=== PATIENT | male | born 1960 | race Hispanic/Latino ===

== ENCOUNTER 2018-01-29 15:49 | Inpatient (IN) | payer OTHER ==
[2018-01-29 15:58] VITALS: BMI 37.5
--- NOTE | 2018-01-29 16:40 | C.PDOC ---
History Of Present Illness 57 y/o male, who has been drinking for years, presents to ED stating that he has been feeling depressed. States he hates himself and has been thinking about committing suicide either by cutting a major artery or hanging himself. States he attempted to commit suicide 20 years ago and was put on Prozac but not on anything at this time. 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 He called his ex- who suggested to come here to ER. Time Seen by Provider: 01/29/18 16:16 Chief Complaint (Nursing): Psychiatric Evaluation History Per: Patient History/Exam Limitations: no limitations Onset/Duration Of Symptoms: Days Current Symptoms Are (Timing): Still Present Past Medical History Reviewed: Historical Data, Nursing Documentation, Vital Signs Vital Signs: Last Vital Signs Temp 98.9 F 01/29/18 15:59 Pulse 94 H 01/29/18 15:59 Resp 19 01/29/18 15:59 BP 195/111 H 01/29/18 15:59 Pulse Ox 95 01/29/18 15:59 - Medical History PMH: Fractures (LEFT LEG FX W/HARDWARE), HTN Family History: States: No Known Family Hx - Social History Hx Alcohol Use: Yes Hx Substance Use: No - Immunization History Hx Tetanus Toxoid Vaccination: No Hx Influenza Vaccination: No Hx Pneumococcal Vaccination: No Review Of Systems Psych: Positive for: Depression, Suicidal ideation Physical Exam - Physical Exam Appears: Non-toxic, No Acute Distress, Other (Sad, flat affect) Skin: Warm, Dry Head: Atraumatic, Normacephalic Eye(s): bilateral: Normal Inspection Oral Mucosa: Moist Neck: Supple Chest: Symmetrical Cardiovascular: Rhythm Regular, No Murmur Respiratory: Normal Breath Sounds, No Rales, No Rhonchi, No Wheezing Gastrointestinal/Abdominal: Soft, No Tenderness Extremity: Bilateral: Atraumatic, Normal Color And Temperature, Normal ROM Neurological/Psych: Oriented x3, Normal Speech ED Course And Treatment - Laboratory Results Result Diagrams: 01/29/18 16:39 01/29/18 16:39 Lab Interpretation: No Acute Changes O2 Sat by Pulse Oximetry: 95 (RA) Pulse Ox Interpretation: Normal Progress Note: Patient is medically cleared for detox admission Medical Decision Making Medical Decision Making: Plan: --Labs --Urinalysis Disposition - Disposition Disposition: HOSPITALIZED Disposition Time: 18:20 Condition: STABLE - POA Present On Arrival: None - Clinical Impression Clinical Impression: Alcohol dependence - Scribe Statement The provider has reviewed the documentation as recorded by the Margaret Callahan Provider Attestation: All medical record entries made by the Margaret were at my direction and personally dictated by me. I have reviewed the chart and agree that the record accurately reflects my personal performance of the history, physical exam, medical decision making, and the department course for this patient. I have also personally directed, reviewed, and agree with the discharge instructions and disposition.
[2018-01-29 16:44] LABS: BASO # 0.1 K/uL (0.0-0.2); BASO % 1.2 % (0.0-2.0); EOS # 0.2 K/uL (0.0-0.7); EOS % 1.9 % (0.0-4.0); HEMOGLOBIN 15.1 g/dL (12.0-18.0); LYMPH # 2.5 K/uL (1.0-4.3); LYMPH % 28.3 % (20.0-40.0); MEAN CORPUSCULAR HEMOGLOBIN 30.8 pg (27.0-31.0); MEAN CORPUSCULAR HGB CONC 33.5 g/dL (33.0-37.0); MEAN PLATELET VOLUME 7.7 fL (7.2-11.7); MONO # 0.7 K/uL (0.0-0.8); MONO % 7.6 % (0.0-10.0); NEUT # 5.4 K/uL (1.8-7.0); RBC 4.88 Mil/uL (4.40-5.90); RED CELL DISTRIBUTION WIDTH 14.1 % (11.5-14.5); WHITE BLOOD COUNT 8.9 K/uL (4.8-10.8)
[2018-01-29 16:49] LABS: SQUAMOUS EPITHIAL 1 /hpf (0-5); URINE BILIRUBIN NEGATIVE (NEGATIVE); URINE BLOOD NEGATIVE (NEGATIVE); URINE CLARITY Clear (Clear); URINE COLOR Yellow (YELLOW); URINE GLUCOSE (UA) NORMAL (Normal); URINE LEUKOCYTE ESTERASE NEG Leu/uL (Negative); URINE PROTEIN NEGATIVE (NEGATIVE)
[2018-01-29 16:56] LABS: ALB/GLOB RATIO 1.5 (1.0-2.1); ALBUMIN 4.2 g/dL (3.5-5.0); ALT/SGPT 47 U/L (21-72); AST/SGOT 37 U/L (17-59); BLOOD UREA NITROGEN 15 mg/dL (9-20); GFR NON-AFRICAN AMERICAN > 60
[2018-01-29 16:58] LABS: BARBITURATES, UR NEGATIVE (NEGATIVE); BENZODIAZEPINES, UR NEGATIVE (NEGATIVE); OPIATES, UR NEGATIVE (NEGATIVE); PHENCYCLIDINE, UR NEGATIVE (NEGATIVE)
--- NOTE | 2018-01-29 18:43 | PCM.BM ---
<Fortino Dejesus - Last Filed: 01/29/18 18:41> Treatment Plan Problems - Problems identified on initial assessmt potential for alcohol withdrawal Date Initiated: 01/29/18 Time Initiated: 18:42 Status: Active Treatment assets and liabiliti Patient Assests: ADL independent, cognitively intact Patient Liabilities: substance abuse - Milieu Protocol Maintain good personal hygiene: daily Encourage regular showers, daily Remind patient to perform daily oral care, daily Assist patient to perform ADL's Conduct patient checks and document Observation sheet: Q15 minutes Maintain personal safety: every shift Educate patient to report safety concerns to staff, every shift Monitor environment for contraband/sharps Medication safety: Monitor for expected outcome, potential side effects: every shift, Assess barriers to learning: every shift, Assess readiness for medication education: every shift <Kathleen Hussein - Last Filed: 01/31/18 12:24> Family Contact Family involvement: Famliy/SO not involved - Goals for Treatment Patient goals for treatment: Complete detox and transition to an inpatient rehab. Discharge/Continuing Care - Education Needs Education Needs: Patient Medication, Patient Diagnosis/Disease Process, Patient Coping Skills, Patient Anger Management skills, Patient Placement options, Patient Community resources - Discharge Discharge Criteria: Ability to care for self, No longer exhibiting s/s of withdrawal, Reduction of target symptoms Discharge to:: Substance Abuse Rehab - Treatment Team Participation Patient/Family/SO Statement: 01/31/18 12:24 "I wanna go to short-term rehab but not too far away--I wanna stey near my 3 sons..." Discussed with Family/SO: No Was Patient/Family/SO present at Treatment Team Meeting: Yes <Alicia Evans - Last Filed: 02/02/18 14:05> - Diagnosis (1) Alcohol dependence Status: Acute Interventions: 01/31/18 14:05 * Assess 7x/week regarding severity of withdrawal * Educate regarding risks, benefits, side effects and alternatives of medications * Use Motivational Interviewing for abstinence * Use CBT for relapse prevention * Medication management for withdrawal symptoms * Encourage medication assisted treatment *
[2018-01-29] MEDS ORDERED: Aluminum Hydroxide/Magnesium Hydroxide Susp (30 mL) PO PRN (22:43)
[2018-01-30] MEDS: Multiple Vitamins Tab PO SCH (09:00)
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
--- NOTE | 2018-01-30 16:46 | RAD ---
Date of service: 01/30/2018 HISTORY: SOB COMPARISON: No prior. FINDINGS: LUNGS: Prominent lung markings. Mildly enlarged left hilum. PLEURA: No significant pleural effusion identified, no pneumothorax apparent. CARDIOVASCULAR: No aortic atherosclerotic calcification present. Normal cardiac size. No pulmonary vascular congestion. OSSEOUS STRUCTURES: No significant abnormalities. VISUALIZED UPPER ABDOMEN: Normal. OTHER FINDINGS: None. IMPRESSION: Prominent lung markings and mild enlargement of the left hilum.
[2018-01-31 07:20] LABS: BASO % 0.6 % (0.0-2.0); EOS # 0.2 K/uL (0.0-0.7); EOS % 2.9 % (0.0-4.0); HEMOGLOBIN 15.1 g/dL (12.0-18.0); LYMPH # 1.9 K/uL (1.0-4.3); LYMPH % 27.3 % (20.0-40.0); MEAN CORPUSCULAR HEMOGLOBIN 31.9 pg (27.0-31.0); MEAN CORPUSCULAR HGB CONC 34.7 g/dL (33.0-37.0); MEAN PLATELET VOLUME 7.7 fL (7.2-11.7); MONO # 0.5 K/uL (0.0-0.8); MONO % 7.1 % (0.0-10.0); NEUT # 4.4 K/uL (1.8-7.0); NEUT % 62.1 % (50.0-75.0); RBC 4.74 Mil/uL (4.40-5.90); RED CELL DISTRIBUTION WIDTH 14.3 % (11.5-14.5); WHITE BLOOD COUNT 7.1 K/uL (4.8-10.8)
[2018-01-31 08:18] LABS: ALB/GLOB RATIO 1.3 (1.0-2.1); ALT/SGPT 43 U/L (21-72); AST/SGOT 45 U/L (17-59); BLOOD UREA NITROGEN 14 mg/dL (9-20); CALCIUM 8.5 mg/dl (8.6-10.4); GFR NON-AFRICAN AMERICAN > 60
[2018-01-31] MEDS: Multiple Vitamins Tab PO SCH (10:45)
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
--- NOTE | 2018-01-31 16:23 | CARD ---
APPROVED REPORT Date of service: 01/31/2018 EXAM: Two-dimensional and M-mode echocardiogram with Doppler and color Doppler. Other Information Quality : TDSRhythm : INDICATION Peripheral Edema 2D DIMENSIONS IVSd1.3 (0.7-1.1cm)LVDd4.4 (3.9-5.9cm) PWd1.3 (0.7-1.1cm)LA Ahjehm34 (18-58mL) LVDs2.8 (2.5-4.0cm)FS (%) 35.2 % LVEF (%)64.8 (>50%)LVEF (Ibrahim's)56.67 % M-Mode DIMENSIONS Left Atrium (MM)4.06 (2.5-4.0cm)IVSd0.95 (0.7-1.1cm) Aortic Root4.00 (2.2-3.7cm)LVDd5.21 (4.0-5.6cm) Aortic Cusp Exc.3.00 (1.5-2.0cm)PWd1.07 (0.7-1.1cm) FS (%) 45 %LVDs2.87 (2.0-3.8cm) LVEF (%)76 (>50%) Mitral Valve MV E Ukqjmcma53.6cm/sMV A Lkbltkiv13.9cm/sE/A ratio0.8 TDI Lateral E' Peak V7.58cm/sMedial E' Peak V6.48cm/sE/Lateral E'6.9 E/Medial E'8.1 Tricuspid Valve TR Peak Hmphosgs004fu/sTR Peak Gr.[id number] LEFT VENTRICLE The left ventricle is normal size. There is normal left ventricular wall thickness. The left ventricular function is normal. The left ventricular ejection fraction is within the normal range. There is normal LV segmental wall motion. The left ventricular diastolic function is normal. RIGHT VENTRICLE The right ventricle is normal size. The right ventricular systolic function is normal. ATRIA The left atrium is mildly dilated. The right atrium size is normal. AORTIC VALVE The aortic valve is normal in structure. No aortic regurgitation is present. There is no aortic valvular stenosis. MITRAL VALVE The mitral valve is normal in structure. There is no mitral valve regurgitation noted. TRICUSPID VALVE The tricuspid valve is normal in structure. There is trace to mild tricuspid regurgitation. Right ventricular systolic pressure is estimated at less than 30 mmHg. PULMONIC VALVE The pulmonary valve is normal in structure. There is trace pulmonic valvular regurgitation. GREAT VESSELS The aortic root is normal in size. The IVC is normal in size and collapses >50% with inspiration. PERICARDIAL EFFUSION There is no pericardial effusion. <Conclusion> Normal bi-ventricular function. The left atrium is mildly dilated. No significant valvular abnormality. No pericardial effusion.
[2018-01-31 16:39] LABS: B-TYPE NATRIURETIC PEPTIDE 116 pg/mL (0-900)
--- NOTE | 2018-01-31 17:16 | CARD ---
APPROVED REPORT Date of service: 01/30/2018 EKG Measurement Heart [id number] <Conclusion> Normal sinus rhythm Minimal voltage criteria for LVH, may be normal variant Anterolateral infarct, age undetermined Abnormal ECG
--- NOTE | 2018-01-31 19:45 | CP.PCM.PN ---
Subjective - Date & Time of Evaluation Date of Evaluation: 01/31/18 Time of Evaluation: 08:30 - Subjective Subjective: PGY-[address] Freitas service Patient is seen and examined by bedside. Patient states bilateral extremity edema has improved from yesterday, noticing his legs to be less swollen. Patient continues to complains of tingling and numbness on plantar aspect of feet, radiating to toes. Patient admits to multi-joint pain and back pain of chronic nature. Denies fevers chills, chest pain, shortness of breath, abdominal pain, n/v/d/c or urinary symptoms. Objective - Vital Signs/Intake and Output Vital Signs (last 24 hours): Temp Pulse Resp BP Pulse Ox 98.6 F 77 18 162/93 H 96 01/31/18 16:22 01/31/18 16:22 01/31/18 16:22 01/31/18 16:22 01/31/18 16:22 - Medications Medications: Current Medications Al Hydrox/Mg Hydrox/Simethicone (Maalox 30 Ml) 30 ml PO TID PRN PRN Reason: Indigestion / Heartburn Chlordiazepoxide (Librium) 25 mg PO Q4H PRN PRN Reason: Alcohol Withdrawal Last Admin: 01/30/18 08:56 Dose: 25 mg Chlordiazepoxide (Librium) 25 mg PO Q6 [facility]; Taper Stop: 02/04/18 05:59 Last Admin: 01/31/18 17:00 Dose: 25 mg Chlorthalidone (Hygroton) 25 mg PO Q24H FATOUMATA Last Admin: 01/31/18 12:27 Dose: 25 mg Clonidine HCl (Catapres) 0.1 mg PO Q4H PRN PRN Reason: Symptoms of alcohol withdrawl Last Admin: 01/31/18 17:00 Dose: 0.1 mg Dicyclomine HCl (Bentyl) 10 mg PO Q6 PRN PRN Reason: Muscle spasm Folic Acid (Folic Acid) 1 mg PO DAILY [facility] Last Admin: 01/31/18 10:44 Dose: 1 mg Gabapentin (Neurontin) 300 mg PO TID FATOUMATA Last Admin: 01/31/18 17:01 Dose: 300 mg Hydroxyzine HCl (Atarax) 50 mg PO Q6H PRN PRN Reason: Anxiety Ibuprofen (Motrin Tab) 600 mg PO Q6 PRN PRN Reason: Pain, moderate (4-7) Last Admin: 01/30/18 08:56 Dose: 600 mg Lisinopril (Zestril) 20 mg PO DAILY [facility] Loperamide HCl (Imodium) 2 mg PO Q8 PRN PRN Reason: Diarrhea Multivitamins (Hexavitamin) 1 tab PO DAILY [facility] Last Admin: 01/31/18 10:45 Dose: 1 tab Naltrexone HCl (Revia) 50 mg PO DAILY [facility] Last Admin: 01/31/18 10:45 Dose: 50 mg Nicotine (Nicoderm Cq) 1 patch TD DAILY [facility] Last Admin: 01/31/18 10:44 Dose: 1 patch Ondansetron HCl (Zofran Tab) 4 mg PO Q8 PRN PRN Reason: Nausea/Vomiting Sertraline HCl (Zoloft) 50 mg PO DAILY [facility] Last Admin: 01/31/18 10:48 Dose: 50 mg Thiamine HCl (Vitamin B1 Tab) 100 mg PO DAILY [facility] Last Admin: 01/31/18 10:45 Dose: 100 mg Trazodone HCl (Desyrel) 100 mg PO HS PRN PRN Reason: Sleep Last Admin: 01/29/18 20:32 Dose: 100 mg - Labs Labs: 01/31/18 07:10 01/31/18 07:10 - Constitutional Appears: Well, Non-toxic, No Acute Distress - Head Exam Head Exam: ATRAUMATIC, NORMAL INSPECTION, NORMOCEPHALIC - Eye Exam Eye Exam: EOMI, Normal appearance, PERRL - ENT Exam ENT Exam: Mucous Membranes Moist, Normal Exam - Neck Exam Neck Exam: Full ROM, Normal Inspection - Respiratory Exam Respiratory Exam: Clear to Ausculation Bilateral, NORMAL BREATHING PATTERN. absent: Rales, Rhonchi, Wheezes - Cardiovascular Exam Cardiovascular Exam: REGULAR RHYTHM, +S1, +S2. absent: Tachycardia - GI/Abdominal Exam GI & Abdominal Exam: Soft, Normal Bowel Sounds. absent: Tenderness - Extremities Exam Extremities Exam: Full ROM, Normal Inspection Additional comments: no pitting pedal or lower extremity edema noted bilaterally - Back Exam Back Exam: Full ROM, NORMAL INSPECTION. absent: paraspinal tenderness, rash noted, tenderness, vertebral tenderness - Neurological Exam Neurological Exam: Alert, Awake, CN II-XII Intact, Oriented x3. absent: Motor Sensory Deficit - Psychiatric Exam Psychiatric exam: Normal Affect, Normal Mood - Skin Skin Exam: Dry, Normal Color, Warm Assessment and Plan - Assessment and Plan (Free Text) Assessment: 57 year old male w/ history of alcohol abuse and HTN, evaluated for SOB and b/l LE edema Plan: SOB, r/o CHF -EKG - NSR -chest X-ray - prominent lung markings, mild enlargement left hilum -Labs - WNL - continues to be afebrile - Echo today - f/u official report LE edema, r/o CHF - d/c Lasix - added Chlorthiadone 25mg PO QD HTN - This am 162/105 - changed lisinoproil from 10 to 20 mg PO QD - continue monitoring vitals Body aches -continue pain medication prn, ibuprofen Alcohol use disorder/Major depressive disorder/general anxiety - treatment as per Psych Plan discussed with Dr Fortino Vera, PGY-1
--- NOTE | 2018-02-01 00:20 | PCM.PYCHPN ---
Psychiatric Progress Note - Psychiatric Progress Note Patient seen today, length of contact: 15 min Patient Chief Complaint: "I don't feel well" Problems Identified/Issues Discussed: The pt is seen, chart reviewed, case discussed with staff. The pt is compliant with medications and reports no side-effects. Symptoms are improving but needs more time to stabilize. Pt attends groups and activities. Support given, psycho-education provided. After care discussed. Medication Change: Yes (detox changes daily) Medical Record Reviewed: Yes Mental Status Examination - Cognitive Function Orientation: Person, Place, Situation, Time Memory: Intact Attention: WNL Concentration: Poor Association: WNL Fund of Knowledge: WNL - Mood Mood: Depressed, Anxious - Affect Affect: Constricted - Speech Speech: Appropriate - Formal Thought Process Formal Thought Process: No Impairment - Suicidal Ideation Suicidal Ideation: No - Homicidal Ideation Homicidal Ideation: No Goal/Treatment Plan - Goal/Treatment Plan Need for Continued Stay: Discharge may exacerbated symptoms, Severe functional impairment Progress Toward Problem(s) and Goals/Treatment Plan: Continue medications Support and psychoeducation daily Attend groups and activities daily After care planning by counselors.
--- NOTE | 2018-02-01 07:56 | CP.PCM.PN ---
Subjective - Date & Time of Evaluation Date of Evaluation: 02/01/18 Time of Evaluation: 07:56 Objective - Vital Signs/Intake and Output Vital Signs (last 24 hours): Temp Pulse Resp BP Pulse Ox 97.5 F L 72 18 165/100 H 95 02/01/18 06:15 02/01/18 06:15 02/01/18 06:15 02/01/18 06:15 02/01/18 06:15 - Medications Medications: Current Medications Al Hydrox/Mg Hydrox/Simethicone (Maalox 30 Ml) 30 ml PO TID PRN PRN Reason: Indigestion / Heartburn Chlordiazepoxide (Librium) 25 mg PO Q4H PRN PRN Reason: Alcohol Withdrawal Last Admin: 02/01/18 06:12 Dose: 25 mg Chlordiazepoxide (Librium) 25 mg PO TID [facility]; Taper Stop: 02/04/18 05:59 Last Admin: 02/01/18 00:50 Dose: Not Given Chlorthalidone (Hygroton) 25 mg PO Q24H [facility] Last Admin: 01/31/18 12:27 Dose: 25 mg Clonidine HCl (Catapres) 0.1 mg PO Q4H PRN PRN Reason: Symptoms of alcohol withdrawl Last Admin: 02/01/18 06:12 Dose: 0.1 mg Dicyclomine HCl (Bentyl) 10 mg PO Q6 PRN PRN Reason: Muscle spasm Folic Acid (Folic Acid) 1 mg PO DAILY [facility] Last Admin: 01/31/18 10:44 Dose: 1 mg Gabapentin (Neurontin) 300 mg PO TID [facility] Last Admin: 01/31/18 17:01 Dose: 300 mg Hydroxyzine HCl (Atarax) 50 mg PO Q6H PRN PRN Reason: Anxiety Ibuprofen (Motrin Tab) 600 mg PO Q6 PRN PRN Reason: Pain, moderate (4-7) Last Admin: 01/30/18 08:56 Dose: 600 mg Lisinopril (Zestril) 20 mg PO DAILY [facility] Loperamide HCl (Imodium) 2 mg PO Q8 PRN PRN Reason: Diarrhea Multivitamins (Hexavitamin) 1 tab PO DAILY [facility] Last Admin: 01/31/18 10:45 Dose: 1 tab Naltrexone HCl (Revia) 50 mg PO DAILY [facility] Last Admin: 01/31/18 10:45 Dose: 50 mg Nicotine (Nicoderm Cq) 1 patch TD DAILY FATOUMATA Last Admin: 01/31/18 10:44 Dose: 1 patch Ondansetron HCl (Zofran Tab) 4 mg PO Q8 PRN PRN Reason: Nausea/Vomiting Sertraline HCl (Zoloft) 50 mg PO DAILY FATOUMATA Last Admin: 01/31/18 10:48 Dose: 50 mg Thiamine HCl (Vitamin B1 Tab) 100 mg PO DAILY FATOUMATA Last Admin: 01/31/18 10:45 Dose: 100 mg Trazodone HCl (Desyrel) 100 mg PO HS PRN PRN Reason: Sleep Last Admin: 01/31/18 21:24 Dose: 100 mg - Labs Labs: 01/31/18 07:10 01/31/18 07:10
[2018-02-01] MEDS: Multiple Vitamins Tab PO SCH (10:15)
--- NOTE | 2018-02-01 15:43 | CP.PCM.DIS ---
Provider - Provider Date of Admission: 01/29/18 18:21 Attending physician: Jared Grover Consults: 01/30/18 12:22 Hospitalist Consult Routine Comment: Consulting Provider: Antonio Lubin Consulting Physician: Antonio Lubin Reason for Consult: swelling upper/lower extremities, blurred vissions, joint pains Hospital Course - Lab Results Lab Results: Most Recent Lab Values WBC 7.1 K/uL (4.8-10.8) 01/31/18 07:10 RBC 4.74 Mil/uL (4.40-5.90) 01/31/18 07:10 Hgb 15.1 g/dL (12.0-18.0) 01/31/18 07:10 Hct 43.6 % (35.0-51.0) 01/31/18 07:10 MCV 92.0 fL (80.0-94.0) 01/31/18 07:10 MCH 31.9 pg (27.0-31.0) H 01/31/18 07:10 MCHC 34.7 g/dL (33.0-37.0) 01/31/18 07:10 RDW 14.3 % (11.5-14.5) 01/31/18 07:10 Plt Count 187 K/uL (130-400) 01/31/18 07:10 MPV 7.7 fL (7.2-11.7) 01/31/18 07:10 Neut % (Auto) 62.1 % (50.0-75.0) 01/31/18 07:10 Lymph % (Auto) 27.3 % (20.0-40.0) 01/31/18 07:10 [place] % (Auto) 7.1 % (0.0-10.0) 01/31/18 07:10 Eos % (Auto) 2.9 % (0.0-4.0) 01/31/18 07:10 Baso % (Auto) 0.6 % (0.0-2.0) 01/31/18 07:10 Neut # (Auto) 4.4 K/uL (1.8-7.0) 01/31/18 07:10 Lymph # (Auto) 1.9 K/uL (1.0-4.3) 01/31/18 07:10 [place] # (Auto) 0.5 K/uL (0.0-0.8) 01/31/18 07:10 Eos # (Auto) 0.2 K/uL (0.0-0.7) 01/31/18 07:10 Baso # (Auto) 0.0 K/uL (0.0-0.2) 01/31/18 07:10 Sodium 136 mmol/L (132-148) 01/31/18 07:10 Potassium 4.2 mmol/L (3.6-5.2) 01/31/18 07:10 Chloride 99 mmol/L (98-107) 01/31/18 07:10 Carbon Dioxide 24 mmol/L (22-30) 01/31/18 07:10 Anion Gap 16 (10-20) 01/31/18 07:10 BUN 14 mg/dL (9-20) 01/31/18 07:10 Creatinine 0.8 mg/dL (0.8-1.5) 01/31/18 07:10 Est GFR ( Amer) > 60 01/31/18 07:10 Est GFR (Non-Af Amer) > 60 01/31/18 07:10 Random Glucose 113 mg/dL (75-110) H 01/31/18 07:10 Hemoglobin A1c 5.9 % (4.2-6.5) 01/31/18 16:15 Calcium 8.5 mg/dl (8.6-10.4) L 01/31/18 07:10 Phosphorus 3.8 mg/dL (2.5-4.5) 01/31/18 07:10 Magnesium 1.9 mg/dL (1.6-2.3) 01/31/18 07:10 Total Bilirubin 0.7 mg/dL (0.2-1.3) 01/31/18 07:10 AST 45 U/L (17-59) 01/31/18 07:10 ALT 43 U/L (21-72) 01/31/18 07:10 Alkaline Phosphatase 82 U/L (38-126) 01/31/18 07:10 NT-Pro-B Natriuret Pep 116 pg/mL (0-900) 01/31/18 16:15 Total Protein 7.0 g/dL (6.3-8.3) 01/31/18 07:10 Albumin 4.0 g/dL (3.5-5.0) 01/31/18 07:10 Globulin 3.1 gm/dL (2.2-3.9) 01/31/18 07:10 Albumin/Globulin Ratio 1.3 (1.0-2.1) 01/31/18 07:10 Vitamin B12 249 pg/mL (239-931) 01/31/18 16:15 Urine Color Yellow (YELLOW) 01/29/18 16:39 Urine Clarity Clear (Clear) 01/29/18 16:39 Urine pH 5.0 (5.0-8.0) 01/29/18 16:39 Ur Specific [place] 1.019 (1.003-1.030) 01/29/18 16:39 Urine Protein Negative mg/dL (NEGATIVE) 01/29/18 16:39 Urine Glucose (UA) Normal mg/dL (Normal) 01/29/18 16:39 Urine Ketones Negative mg/dL (NEGATIVE) 01/29/18 16:39 Urine Blood Negative (NEGATIVE) 01/29/18 16:39 Urine Nitrate Negative (NEGATIVE) 01/29/18 16:39 Urine Bilirubin Negative (NEGATIVE) 01/29/18 16:39 Urine Urobilinogen 2.0 mg/dL (0.2-1.0) 01/29/18 16:39 Ur Leukocyte Esterase Neg Bill/uL (Negative) 01/29/18 16:39 Urine WBC (Auto) < 1 /hpf (0-5) 01/29/18 16:39 Urine RBC (Auto) < 1 /hpf (0-3) 01/29/18 16:39 Ur Squamous Epith Cells 1 /hpf (0-5) 01/29/18 16:39 Urine Opiates Screen Negative (NEGATIVE) 01/29/18 16:39 Urine Methadone Screen Negative (NEGATIVE) 01/29/18 16:39 Ur Barbiturates Screen Negative (NEGATIVE) 01/29/18 16:39 Ur Phencyclidine Scrn Negative (NEGATIVE) 01/29/18 16:39 Ur Amphetamines Screen Negative (NEGATIVE) 01/29/18 16:39 U Benzodiazepines Scrn Negative (NEGATIVE) 01/29/18 16:39 U Oth Cocaine Metabols Positive (NEGATIVE) H 01/29/18 16:39 U Cannabinoids Screen Negative (NEGATIVE) 01/29/18 16:39 Alcohol, Quantitative < 10 mg/dl (0-10) 01/29/18 16:39 Discharge Exam - Head Exam Head Exam: ATRAUMATIC, NORMAL INSPECTION, NORMOCEPHALIC Discharge Plan - Follow Up Plan Condition: STABLE Disposition: HOME/ ROUTINE Additional Instructions: Discharge Hotline Numbers: [place] [facility] Crisis 24 Hour Hotline: 849-300 HELP (9815) AA- Alcoholics Anonymous 24 Hour Hotline: 1-033-963- 8926 NA- Narcotics Anonymous 24 Hour Hotline: [place] Addictions Services Hotline: [place] Quitline Self-Help Meeting Websites: AA Meeting List: www.nnjaa.org NA Meeting List: www.narcoticsanonymous[place].org If needed you can reach the detox unit at Avoid all mood and mind altering substances including alcohol. Make every effort to make 90 meetings in 90 days and obtain a sponsor and get involved in 12 step recovery. Follow up with you primary doctor for your medical needs Nutrition: Eat balanced meals incorporating fruits, vegetables and protein. Drink plenty of water throughout the day at least 8 to 10 cups. Sleep is extremely important in your recovery. Follow Up Appointments:
--- NOTE | 2018-02-01 15:44 | CP.PCM.PN ---
Subjective - Date & Time of Evaluation Date of Evaluation: 02/01/18 Time of Evaluation: 07:35 - Subjective Subjective: PGY-[address] Freitas Patient is seen and examined at bedside. Patient states his lower extremity swelling has improved since yesterday. Patient mentions he is walking much better. Patient continues to feel bilateral feet numbness and tingling, as well as multi joint pain, mostly on his hips. Patient admits to urinating more jayson quently. Denies fever, chills, headache, dizziness, chest pain, shortness of breath, abdominal pain, nausea, vomiting, diarrhea, constipation, or other urinary symptoms Objective - Vital Signs/Intake and Output Vital Signs (last 24 hours): Temp Pulse Resp BP Pulse Ox 97.2 F L 81 18 137/82 95 02/01/18 13:41 02/01/18 13:41 02/01/18 13:41 02/01/18 13:41 02/01/18 13:41 - Medications Medications: Current Medications Al Hydrox/Mg Hydrox/Simethicone (Maalox 30 Ml) 30 ml PO TID PRN PRN Reason: Indigestion / Heartburn Chlordiazepoxide (Librium) 25 mg PO Q4H PRN PRN Reason: Alcohol Withdrawal Last Admin: 02/01/18 06:12 Dose: 25 mg Chlordiazepoxide (Librium) 25 mg PO TID [facility]; Taper Stop: 02/04/18 05:59 Last Admin: 02/01/18 13:50 Dose: 25 mg Chlorthalidone (Hygroton) 25 mg PO Q24H [facility] Last Admin: 02/01/18 12:02 Dose: 25 mg Clonidine HCl (Catapres) 0.1 mg PO Q4H PRN PRN Reason: Symptoms of alcohol withdrawl Last Admin: 02/01/18 06:12 Dose: 0.1 mg Cyanocobalamin (Vitamin B12 1000 Mcg Tab) 1,000 mcg PO DAILY [facility] Dicyclomine HCl (Bentyl) 10 mg PO Q6 PRN PRN Reason: Muscle spasm Folic Acid (Folic Acid) 1 mg PO DAILY [facility] Last Admin: 02/01/18 10:15 Dose: 1 mg Gabapentin (Neurontin) 300 mg PO TID [facility] Last Admin: 02/01/18 13:50 Dose: 300 mg Hydroxyzine HCl (Atarax) 50 mg PO Q6H PRN PRN Reason: Anxiety Ibuprofen (Motrin Tab) 600 mg PO Q6 PRN PRN Reason: Pain, moderate (4-7) Last Admin: 01/30/18 08:56 Dose: 600 mg Lisinopril (Zestril) 20 mg PO DAILY [facility] Last Admin: 02/01/18 10:15 Dose: 20 mg Loperamide HCl (Imodium) 2 mg PO Q8 PRN PRN Reason: Diarrhea Multivitamins (Hexavitamin) 1 tab PO DAILY [facility] Last Admin: 02/01/18 10:15 Dose: 1 tab Naltrexone HCl (Revia) 50 mg PO DAILY [facility] Last Admin: 02/01/18 10:15 Dose: 50 mg Nicotine (Nicoderm Cq) 1 patch TD DAILY [facility] Last Admin: 02/01/18 10:15 Dose: 1 patch Ondansetron HCl (Zofran Tab) 4 mg PO Q8 PRN PRN Reason: Nausea/Vomiting Sertraline HCl (Zoloft) 50 mg PO DAILY [facility] Last Admin: 02/01/18 10:15 Dose: 50 mg Thiamine HCl (Vitamin B1 Tab) 100 mg PO DAILY [facility] Last Admin: 02/01/18 10:15 Dose: 100 mg Trazodone HCl (Desyrel) 100 mg PO HS PRN PRN Reason: Sleep Last Admin: 01/31/18 21:24 Dose: 100 mg - Labs Labs: 01/31/18 07:10 01/31/18 07:10 - Constitutional Appears: Well, Non-toxic, No Acute Distress - Head Exam Head Exam: ATRAUMATIC, NORMAL INSPECTION, NORMOCEPHALIC - Eye Exam Eye Exam: EOMI, Normal appearance, PERRL - ENT Exam ENT Exam: Mucous Membranes Moist, Normal Exam - Neck Exam Neck Exam: Full ROM, Normal Inspection - Respiratory Exam Respiratory Exam: Clear to Ausculation Bilateral, NORMAL BREATHING PATTERN. absent: Accessory Muscle Use, Rales, Rhonchi, Wheezes, Respiratory Distress - Cardiovascular Exam Cardiovascular Exam: REGULAR RHYTHM, +S1, +S2 - GI/Abdominal Exam GI & Abdominal Exam: Soft, Normal Bowel Sounds. absent: Distended, Tenderness - Extremities Exam Extremities Exam: Full ROM, Normal Inspection. absent: Calf Tenderness, Pedal Edema, Tenderness - Back Exam Back Exam: Full ROM, NORMAL INSPECTION - Neurological Exam Neurological Exam: Alert, Awake, CN II-XII Intact, Normal Gait, Oriented x3 - Psychiatric Exam Psychiatric exam: Normal Affect, Normal Mood - Skin Skin Exam: Dry, Intact, Normal Color, Warm Assessment and Plan - Assessment and Plan (Free Text) Plan: SOB, 2/2 to fluid accumulation due to alcohol use disorder - EKG - NSR - chest X-ray - prominent lung markings, mild enlargement left hilum - Labs - WNL - Echo - normal bi-ventricular function, left atrium dilated, no percardial effusion, no valvular abnormalities. LVEF 64.8 - asymptomatic at this time. LE edema, 2/2 alcohol use disorder - continue Chlorthiadone 25mg PO QD - added lasix 20mg PO Qdaily - Script left in chart for Clorthiadone and lasix for patient to continue medication after d/c from hospital HTN - continue Lisinopril 20mg PO daily - continue monitoring vitals - Script left for Lisinopril for patient to continue medication after d/c from hospital Body aches -continue pain medication prn, ibuprofen Alcohol use disorder/Major depressive disorder/general anxiety - treatment as per Psych DISPO: Thank you for allowing us to be part of the care of the patient. Medicine team will now sign off from the case. Please re consult as needed. Plan discussed with Dr Fortino Vera, PGY-1
--- NOTE | 2018-02-01 22:45 | PCM.PYCHPN ---
Psychiatric Progress Note - Psychiatric Progress Note Patient seen today, length of contact: 15 min Patient Chief Complaint: "I am a little better" Problems Identified/Issues Discussed: The pt is seen, chart reviewed, case discussed with staff. Support and psychoeducation given, CBT and OK used briefly No new symptoms reported, improving slowly and needs more time Still shaky and anxious No SEs from medications, risks discussed. After care discussed Medication Change: Yes (detox changes daily) Medical Record Reviewed: Yes Mental Status Examination - Cognitive Function Orientation: Person, Place, Situation, Time Memory: Intact Attention: WNL Concentration: Poor Association: WNL Fund of Knowledge: WNL - Mood Mood: Depressed, Anxious - Affect Affect: Constricted - Speech Speech: Appropriate - Formal Thought Process Formal Thought Process: No Impairment - Suicidal Ideation Suicidal Ideation: No - Homicidal Ideation Homicidal Ideation: No Goal/Treatment Plan - Goal/Treatment Plan Need for Continued Stay: Discharge may exacerbated symptoms, Severe functional impairment Progress Toward Problem(s) and Goals/Treatment Plan: Continue medications Support and psychoeducation daily Attend groups and activities daily After care planning by counselors.
[2018-02-02] MEDS: Multiple Vitamins Tab PO SCH (10:30)
--- NOTE | 2018-02-02 11:04 | PCM.PYCHPN ---
Psychiatric Progress Note - Psychiatric Progress Note Patient seen today, length of contact: 15 min Patient Chief Complaint: "I am getting better" Problems Identified/Issues Discussed: The pt is seen, chart reviewed, case discussed with staff. The pt is compliant with medications and reports no side-effects. Symptoms are improving but needs more time to stabilize. Pt attends groups and activities. Support given, psycho-education provided. After care discussed. He will go to [facility] Medication Change: Yes (detox changes daily) Medical Record Reviewed: Yes Mental Status Examination - Cognitive Function Orientation: Person, Place, Situation, Time Memory: Intact Attention: WNL Concentration: Poor Association: WNL Fund of Knowledge: WNL - Mood Mood: Depressed, Anxious - Affect Affect: Constricted - Speech Speech: Appropriate - Formal Thought Process Formal Thought Process: No Impairment - Suicidal Ideation Suicidal Ideation: No - Homicidal Ideation Homicidal Ideation: No Goal/Treatment Plan - Goal/Treatment Plan Need for Continued Stay: Discharge may exacerbated symptoms, Severe functional impairment Progress Toward Problem(s) and Goals/Treatment Plan: Continue medications Support and psychoeducation daily Attend groups and activities daily After care planning by counselors. Estimated Date of D/C: 02/03/18
[2018-02-03 06:22] VITALS: TEMP 97.5
--- NOTE | 2018-02-03 08:54 | PCM.PYCHDC ---
Mental Status Examination - Mental Status Examination Orientation: Person Discharge Summary - Discharge Note Consultations:: List each consultation separately and include: 1. Reason for request. 2. Findings. 3. Follow-up Summary of Hospital Course include:: 1. Description of specific treatment plan utilized for patients during their course of treatmen. 2. Summarize the time- course for resolution of acute symptoms and/or regressed behaviors. 3. Describe issues identified and worked on during hospitalization. 4. Describe medication utilized. 5. Describe medical problems identified and treated. 6. Reassessment of suicide risk Summary of Hospital Course: He went to [facility] in [place] - Diagnosis (1) Alcohol dependence Current Visit: Yes Status: Acute - Final Diagnosis (DSM 5) Condition upon Discharge: STABLE Disposition: HOME/ ROUTINE Follow-up Treatment Plan: Continue medications Support and psychoeducation daily Attend groups and activities daily After care planning by counselors. Prescriptions/Medication Reconciliation: Chlorthalidone [Hygroton] 25 mg PO Q24H #30 tab Cyanocobalamin [Vitamin B12 1000 mcg Tab] 1,000 mcg PO DAILY #30 tab Furosemide [Lasix] 20 mg PO DAILY #30 tab Gabapentin [Neurontin] 300 mg PO TID #90 cap Lisinopril [Zestril] 20 mg PO DAILY #30 tab Naltrexone [Revia] 50 mg PO DAILY #30 tab Sertraline [Zoloft] 50 mg PO DAILY #30 tab traZODone [Desyrel] 100 mg PO HS PRN #30 tab PRN Reason: Sleep
[2018-02-03 09:31] VITALS: BP 149/64
[2018-02-03] MEDS: Multiple Vitamins Tab PO SCH (09:31)
[2018-02-03 09:48] VITALS: PULSE 76; RESP 20; O2SAT 95
== END 2018-02-03 09:50 | disposition home or self-care (01) | DRG 751 ==
LOC: C.ER 15:49 → C.7D 18:21
PROVIDERS: ADMIT Psychiatry & Neurology Psychiatry; ATTEND Psychiatry & Neurology Psychiatry
PROC: HZ2ZZZZ Detoxification Services for Substance Abuse Treatment (ICD-10-PCS; principal; 2018-01-29)
PROC: HZ59ZZZ Individual Psychotherapy for Substance Abuse Treatment, Supportive (ICD-10-PCS; 2018-01-29)
PROC: GZ3ZZZZ Medication Management (ICD-10-PCS; 2018-01-29)
PROC: HZ46ZZZ Group Counseling for Substance Abuse Treatment, Psychoeducation (ICD-10-PCS; 2018-01-29)
DX: F10.230 Alcohol dependence with withdrawal, uncomplicated (principal); F32.9 Major depressive disorder, single episode, unspecified; F41.1 Generalized anxiety disorder; R45.851 Suicidal ideations; F17.210 Nicotine dependence, cigarettes, uncomplicated; I10 Essential (primary) hypertension; Y90.0 Blood alcohol level of less than 20 mg/100 ml